=== PATIENT | male | born 1955 | race Caucasian/White ===

== ENCOUNTER 2016-09-25 10:29 | Inpatient (IN) | payer BC ==
[2016-09-25 11:28] VITALS: BMI 25.7
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
[2016-09-25] MEDS ORDERED: IBUPROFEN 400 MG TABLET (FP) PO PRN (14:58)
[2016-09-25] MEDS ORDERED: chlordiazePOXIDE HCL 25 MG CAPSULE PO PRN (14:58)
[2016-09-25] MEDS ORDERED: guaiFENesin/D-METHORPHAN HB 10 ML UNIT-DOSE CUPS PO PRN (14:58)
[2016-09-25] MEDS ORDERED: MAG HYDROX/AL HYDROX/SIMETH 30 ML UNIT-DOSE CUP PO PRN (14:58)
[2016-09-25] MEDS ORDERED: MAGNESIUM HYDROX 2400MG/30ML ORAL SUSPENSION 30 ML CUP PO PRN (14:58)
[2016-09-25] MEDS ORDERED: LOPERAMIDE HCL 2 MG CAPSULE PO PRN (14:58)
[2016-09-25] MEDS ORDERED: hydrOXYzine PAMOATE 25 MG CAPSULE (FP) PO PRN (14:58)
[2016-09-25] MEDS ORDERED: MENTHOL/PHENOL 1 EACH UD MM PRN (14:58)
[2016-09-25] MEDS ORDERED: MAGNESIUM CITRATE 300 ML BOTTLE PO PRN (14:58)
[2016-09-25] MEDS ORDERED: ACETAMINOPHEN 325 MG TABLET (FP) PO PRN (14:58)
[2016-09-25] MEDS ORDERED: P-EPHED 60MG/TRIPROLIDI 2.5MG TABLET PO PRN (14:58)
[2016-09-25] MEDS ORDERED: chlordiazePOXIDE HCL 25 MG CAPSULE PO ONE (16:45)
[2016-09-25] MEDS: chlordiazePOXIDE HCL 25 MG CAPSULE PO SCH ×2 (18:48→22:30)
[2016-09-25] MEDS: levETIRAcetam 250 MG TABLET (FP) PO SCH (22:30)
[2016-09-25] MEDS: THIAMINE HCL 100 MG TABLET (FP) PO SCH (22:30)
[2016-09-25] MEDS: diphenhydrAMINE HCL 50 MG CAPSULE PO PRN (22:31)
[2016-09-25 22:43] LABS: URINE APPEARANCE CLEAR; URINE BILIRUBIN NEGATIVE (NEGATIVE); URINE BLOOD NEGATIVE (NEGATIVE); URINE COLOR YELLOW; URINE GLUCOSE (UA) NEGATIVE (NEGATIVE); URINE KETONE TRACE (NEGATIVE); URINE LEUK ESTERASE NEGATIVE (NEGATIVE); URINE NITRITE NEGATIVE (NEGATIVE); URINE PROTEIN NEGATIVE (NEGATIVE); URINE UROBILINOGEN 2.0 E.U/dl E.U./dl (0.2-1.0)
[2016-09-25 22:53] LABS: MCH 34.3 pg (25.7-33.7); MCHC 34.2 g/dl (32.0-35.9); MEAN CELL VOLUME 100.2 fl (80-96); MEAN PLT VOLUME 7.8 fl (7.5-11.1); PLATELET COUNT 202 K/MM3 (134-434); RDW 13.4 % (11.9-15.9)
[2016-09-25 22:55] LABS: ALBUMIN 4.2 g/dl (3.4-5.0); ANION GAP 8 (8-16); CALCIUM 8.4 mg/dL (8.5-10.1); CO2 28 mmol/L (21-32); GLUCOSE,RANDOM 88 mg/dL (74-106)
[2016-09-25 22:59] LABS: ALK PHOS 84 U/L (45-117); BILIRUBIN,TOTAL 0.9 mg/dL (0.2-1.0); COCKROFT - GAULT 113.39; CREATININE 0.9 mg/dL (0.7-1.3); SGOT/AST 40 U/L (15-37); SGPT/ALT 26 U/L (12-78); TOT PROT 7.5 g/dl (6.4-8.2)
[2016-09-26] MEDS: chlordiazePOXIDE HCL 25 MG CAPSULE PO SCH ×4 (05:43→22:39)
--- NOTE | 2016-09-26 10:09 | EKG ---
Test Reason : Blood Pressure : / mmHG Vent. Rate : 060 BPM Atrial Rate : 060 BPM P-R Int : 166 ms QRS Dur : 104 ms QT Int : 432 ms P-R-T Axes : 045 061 055 degrees QTc Int : 432 ms NORMAL SINUS RHYTHM MODERATE VOLTAGE CRITERIA FOR LVH, MAY BE NORMAL VARIANT NO PREVIOUS ECGS AVAILABLE Confirmed by CLAUDIA BRANDT MD ([id number]) on 09/26/2016 10:09:31 AM Referred By: Confirmed By:CLAUDIA BRANDT MD
[2016-09-26] MEDS: PRENATAL VITAMINS W/ FOLIC ACID TABLET (FP) PO SCH (10:28)
[2016-09-26] MEDS: levETIRAcetam 250 MG TABLET (FP) PO SCH ×2 (10:28→22:39)
--- NOTE | 2016-09-26 10:52 | CONSULT ---
[facility] Psychiatric Consult - Data Date of interview: 09/26/16 Admission source: [facility] Identifying data: This is 61 years old H male father of 9 domiciled,resides alone,supported by SSD admitted for Alcohol dependence. Substance Abuse History: Reports drinking since 34 years old,progressed to heavy drinking about 2-3 years ago. Cocaine on and off started about 4 years ago. Medical History: Seizure disorder. Psychiatric History: Reports feeling depressed,sad ,anxious about 1 year ago.never addressed these issues before.Denies suicidal attempts,no history of psychiatric admissions ar any psychiatric treatment in the past. Physical/Sexual Abuse/Trauma History: denies Mental Status Exam - Mental Status Exam Alert and Oriented to: Time, Place, Person Cognitive Function: Grossly Intact Patient Appearance: Unkempt Mood: Depressed Affect: Labile Patient Behavior: Cooperative Speech Pattern: Clear Voice Loudness: Normal Thought Process: Goal Oriented Thought Disorder: Not Present Hallucinations: Denies Suicidal Ideation: Denies Homicidal Ideation: Denies Insight/Judgement: Fair Sleep: Fair Appetite: Good, Weight loss Muscle strength/Tone: Normal Gait/Station: Normal Psychiatric Findings - Problem List ([place] 1, 2,3) (1) Alcohol dependence with uncomplicated withdrawal Current Visit: Yes Status: Chronic (2) Cocaine dependence, uncomplicated Current Visit: Yes Status: Chronic (3) History of anemia Current Visit: Yes Status: Suspected (4) Seizure disorder Current Visit: Yes Status: Chronic Comment: ON [facility] (5) Substance induced mood disorder Current Visit: Yes Status: Chronic - Initial Treatment Plan Initial Treatment Plan: Start Celexa 10 mg po daily. Will monitor progress.
[2016-09-26] MEDS: CITALOPRAM HYDROBROMIDE 10 MG TABLET (FP) PO SCH (12:11)
[2016-09-26 13:42] LABS: HIV 1 & 2 AB NEGATIVE; HIV 1 AGp24 NEGATIVE
--- NOTE | 2016-09-26 14:05 | PN ---
S CIWA - CIWA Score Nausea/Vomitin Muscle Tremors: 2 Anxiety: 2 Agitation: 2 Paroxysmal Sweats: 2 Orientation: 0-Oriented Tacttile Disturbances: 1-Very Mild Itch/Numbness Auditory Disturbances: 0-None Visual Disturbances: 1-Very Mild Sensitivity Headache: 2-Mild CIWA-Ar Total Score: 14 S Progress Note (SOAP) Subjective: sleep interruption, tremors, sweats and left knee pain Objective: Vital Signs - 8 hr 09/26/16 09/26/16 06:48 09:50 Temperature 96.1 F L 98.4 F Pulse Rate 68 63 Respiratory 18 18 Rate Blood Pressure 125/80 133/84 Laboratory Last Values WBC 5.0 K/mm3 (4.0-10.0) 09/25/16 13:00 RBC 3.80 M/mm3 (4.00-5.60) L 09/25/16 13:00 Hgb 13.0 GM/dL (11.7-16.9) 09/25/16 13:00 Hct 38.0 % (35.4-49) 09/25/16 13:00 MCV 100.2 fl (80-96) H 09/25/16 13:00 MCHC 34.2 g/dl (32.0-35.9) 09/25/16 13:00 RDW 13.4 % (11.9-15.9) D 09/25/16 13:00 Plt Count 202 K/MM3 (134-434) D 09/25/16 13:00 MPV 7.8 fl (7.5-11.1) 09/25/16 13:00 Sodium 140 mmol/L (136-145) 09/25/16 13:00 Potassium 4.3 mmol/L (3.5-5.1) 09/25/16 13:00 Chloride 104 mmol/L (98-107) 09/25/16 13:00 Carbon Dioxide 28 mmol/L (21-32) 09/25/16 13:00 Anion Gap 8 (8-16) 09/25/16 13:00 BUN 6 mg/dL (7-18) L D 09/25/16 13:00 Creatinine 0.9 mg/dL (0.7-1.3) 09/25/16 13:00 Creat Clearance w eGFR > 60 (>60) 09/25/16 13:00 Random Glucose 88 mg/dL (74-106) 09/25/16 13:00 Calcium 8.4 mg/dL (8.5-10.1) L 09/25/16 13:00 Total Bilirubin 0.9 mg/dL (0.2-1.0) 09/25/16 13:00 AST 40 U/L (15-37) H D 09/25/16 13:00 ALT 26 U/L (12-78) D 09/25/16 13:00 Alkaline Phosphatase 84 U/L (45-117) 09/25/16 13:00 Total Protein 7.5 g/dl (6.4-8.2) 09/25/16 13:00 Albumin 4.2 g/dl (3.4-5.0) 09/25/16 13:00 Urine Color Yellow 09/25/16 21:30 Urine Appearance Clear 09/25/16 21:30 Urine pH 6.0 (5.0-8.0) 09/25/16 21:30 Ur Specific [place] 1.021 (1.001-1.035) 09/25/16 21:30 Urine Protein Negative (NEGATIVE) 09/25/16 21:30 Urine Glucose (UA) Negative (NEGATIVE) 09/25/16 21:30 Urine Ketones Trace (NEGATIVE) H 09/25/16 21:30 Urine Blood Negative (NEGATIVE) 09/25/16 21:30 Urine Nitrite Negative (NEGATIVE) 09/25/16 21:30 Urine Bilirubin Negative (NEGATIVE) 09/25/16 21:30 Urine Urobilinogen 2.0 e.u/dl E.U./dl (0.2-1.0) 09/25/16 21:30 Ur Leukocyte Esterase Negative (NEGATIVE) 09/25/16 21:30 RPR Titer Nonreactive (NONREACTIVE) 09/25/16 13:00 HIV 1&2 Antibody Screen Negative 09/26/16 08:20 HIV P24 Antigen Negative 09/26/16 08:20 labs noted Assessment: 09/26/16 14:04 withdrawal sx Plan: continue detox
[2016-09-26] MEDS: THIAMINE HCL 100 MG TABLET (FP) PO SCH (22:39)
[2016-09-26] MEDS: diphenhydrAMINE HCL 50 MG CAPSULE PO PRN (22:40)
[2016-09-27] MEDS: chlordiazePOXIDE HCL 25 MG CAPSULE PO SCH ×2 (05:32→10:28)
[2016-09-27] MEDS: PRENATAL VITAMINS W/ FOLIC ACID TABLET (FP) PO SCH (10:27)
[2016-09-27] MEDS: levETIRAcetam 250 MG TABLET (FP) PO SCH ×2 (10:28→22:44)
[2016-09-27] MEDS: CITALOPRAM HYDROBROMIDE 10 MG TABLET (FP) PO SCH (10:28)
--- NOTE | 2016-09-27 16:18 | PN ---
S CIWA - CIWA Score Nausea/Vomitin Muscle Tremors: 4-Moderate,w/Arms Extend Anxiety: 4-Mod. Anxious/Guarded Agitation: 4-Moderately Restless Paroxysmal Sweats: No Perspiration Orientation: 0-Oriented Tacttile Disturbances: 1-Very Mild Itch/Numbness Auditory Disturbances: 0-None Visual Disturbances: 0-None Headache: 2-Mild CIWA-Ar Total Score: 18 BHS Progress Note (SOAP) Subjective: Sweating, anxious, pain in legs, interrupted sleep Objective: 09/27/16 16:17 Last Vital Signs Temp Pulse Resp BP Pulse Ox 97.4 F L 81 18 121/79 09/27/16 13:37 09/27/16 13:37 09/27/16 13:37 09/27/16 13:37 Laboratory Tests 09/25/16 09/25/16 09/25/16 13:00 13:00 13:00 WBC 5.0 RBC 3.80 L Hgb 13.0 Hct 38.0 MCV 100.2 H MCHC 34.2 RDW 13.4 D Plt Count 202 D MPV 7.8 Sodium 140 Potassium 4.3 Chloride 104 Carbon Dioxide 28 Anion Gap 8 BUN 6 L D Creatinine 0.9 Creat Clearance w eGFR > 60 Random Glucose 88 Calcium 8.4 L Total Bilirubin 0.9 AST 40 H D ALT 26 D Alkaline Phosphatase 84 Total Protein 7.5 Albumin 4.2 Urine Color Urine Appearance Urine pH Ur Specific [place] Urine Protein Urine Glucose (UA) Urine Ketones Urine Blood Urine Nitrite Urine Bilirubin Urine Urobilinogen Ur Leukocyte Esterase RPR Titer Nonreactive HIV 1&2 Antibody Screen HIV P24 Antigen 09/25/16 09/26/16 21:30 08:20 WBC RBC Hgb Hct MCV MCHC RDW Plt Count MPV Sodium Potassium Chloride Carbon Dioxide Anion Gap BUN Creatinine Creat Clearance w eGFR Random Glucose Calcium Total Bilirubin AST ALT Alkaline Phosphatase Total Protein Albumin Urine Color Yellow Urine Appearance Clear Urine pH 6.0 Ur Specific [place] 1.021 Urine Protein Negative Urine Glucose (UA) Negative Urine Ketones Trace H Urine Blood Negative Urine Nitrite Negative Urine Bilirubin Negative Urine Urobilinogen 2.0 e.u/dl Ur Leukocyte Esterase Negative RPR Titer HIV 1&2 Antibody Screen Negative HIV P24 Antigen Negative Labs noted Assessment: 09/27/16 16:17 Withdrawal symptoms Plan: Continue detox
[2016-09-27] MEDS: chlordiazePOXIDE 5 MG CAPSULE PO SCH ×2 (17:33→22:43)
[2016-09-27] MEDS: THIAMINE HCL 100 MG TABLET (FP) PO SCH (22:43)
[2016-09-27] MEDS: diphenhydrAMINE HCL 50 MG CAPSULE PO PRN (22:44)
[2016-09-28] MEDS: chlordiazePOXIDE 5 MG CAPSULE PO SCH ×2 (05:54→10:33)
[2016-09-28] MEDS: PRENATAL VITAMINS W/ FOLIC ACID TABLET (FP) PO SCH (10:33)
[2016-09-28] MEDS: levETIRAcetam 250 MG TABLET (FP) PO SCH ×2 (10:33→22:30)
[2016-09-28] MEDS: CITALOPRAM HYDROBROMIDE 10 MG TABLET (FP) PO SCH (10:33)
--- NOTE | 2016-09-28 14:27 | PN ---
BHS Progress Note (SOAP) Subjective: Sweating,interrupted sleep,restless. Objective: 09/28/16 14:25 Vital Signs - 8 hr 09/28/16 09/28/16 09:53 14:12 Temperature 98.6 F 96.8 F L Pulse Rate 92 H 84 Respiratory 20 18 Rate Blood Pressure 114/77 130/89 Laboratory Last Values WBC 5.0 K/mm3 (4.0-10.0) 09/25/16 13:00 RBC 3.80 M/mm3 (4.00-5.60) L 09/25/16 13:00 Hgb 13.0 GM/dL (11.7-16.9) 09/25/16 13:00 Hct 38.0 % (35.4-49) 09/25/16 13:00 MCV 100.2 fl (80-96) H 09/25/16 13:00 MCHC 34.2 g/dl (32.0-35.9) 09/25/16 13:00 RDW 13.4 % (11.9-15.9) D 09/25/16 13:00 Plt Count 202 K/MM3 (134-434) D 09/25/16 13:00 MPV 7.8 fl (7.5-11.1) 09/25/16 13:00 Sodium 140 mmol/L (136-145) 09/25/16 13:00 Potassium 4.3 mmol/L (3.5-5.1) 09/25/16 13:00 Chloride 104 mmol/L (98-107) 09/25/16 13:00 Carbon Dioxide 28 mmol/L (21-32) 09/25/16 13:00 Anion Gap 8 (8-16) 09/25/16 13:00 BUN 6 mg/dL (7-18) L D 09/25/16 13:00 Creatinine 0.9 mg/dL (0.7-1.3) 09/25/16 13:00 Creat Clearance w eGFR > 60 (>60) 09/25/16 13:00 Random Glucose 88 mg/dL (74-106) 09/25/16 13:00 Calcium 8.4 mg/dL (8.5-10.1) L 09/25/16 13:00 Total Bilirubin 0.9 mg/dL (0.2-1.0) 09/25/16 13:00 AST 40 U/L (15-37) H D 09/25/16 13:00 ALT 26 U/L (12-78) D 09/25/16 13:00 Alkaline Phosphatase 84 U/L (45-117) 09/25/16 13:00 Total Protein 7.5 g/dl (6.4-8.2) 09/25/16 13:00 Albumin 4.2 g/dl (3.4-5.0) 09/25/16 13:00 Urine Color Yellow 09/25/16 21:30 Urine Appearance Clear 09/25/16 21:30 Urine pH 6.0 (5.0-8.0) 09/25/16 21:30 Ur Specific [place] 1.021 (1.001-1.035) 09/25/16 21:30 Urine Protein Negative (NEGATIVE) 09/25/16 21:30 Urine Glucose (UA) Negative (NEGATIVE) 09/25/16 21:30 Urine Ketones Trace (NEGATIVE) H 09/25/16 21:30 Urine Blood Negative (NEGATIVE) 09/25/16 21:30 Urine Nitrite Negative (NEGATIVE) 09/25/16 21:30 Urine Bilirubin Negative (NEGATIVE) 09/25/16 21:30 Urine Urobilinogen 2.0 e.u/dl E.U./dl (0.2-1.0) 09/25/16 21:30 Ur Leukocyte Esterase Negative (NEGATIVE) 09/25/16 21:30 Levetiracetam 17.2 MCG/ML (10.0-40.0) 09/25/16 13:00 RPR Titer Nonreactive (NONREACTIVE) 09/25/16 13:00 HIV 1&2 Antibody Screen Negative 09/26/16 08:20 HIV P24 Antigen Negative 09/26/16 08:20 labs noted Assessment: 09/28/16 14:26 Withdrawal sx. Plan: Continue detox
[2016-09-28] MEDS: chlordiazePOXIDE HCL 10 MG CAPSULE PO SCH ×2 (17:19→22:29)
[2016-09-28] MEDS: THIAMINE HCL 100 MG TABLET (FP) PO SCH (22:29)
[2016-09-29] MEDS: chlordiazePOXIDE HCL 10 MG CAPSULE PO SCH (05:58)
[2016-09-29 06:33] VITALS: BP 100/72; PULSE 84; TEMP 98.8
[2016-09-29] MEDS: levETIRAcetam 250 MG TABLET (FP) PO SCH (09:20)
[2016-09-29] MEDS: PRENATAL VITAMINS W/ FOLIC ACID TABLET (FP) PO SCH (09:21)
[2016-09-29] MEDS: CITALOPRAM HYDROBROMIDE 10 MG TABLET (FP) PO SCH (09:21)
--- NOTE | 2016-09-29 10:38 | DS ---
[facility] Detox Discharge Summary Admission Date: 09/25/16 Discharge Date: 09/29/16 - History Present History: Alcohol Dependence, Cocaine Dependence Additional Comments: DETOX COMPLETED.ALERT O X 3. NAD. Pertinent Past History: ANEMIA SEIZURE DISORDER HX DEPRESSION - Physical Exam Results Vital Signs: Vital Signs Temperature 98.8 F 09/29/16 06:33 Pulse Rate 84 09/29/16 06:33 Respiratory Rate 18 09/29/16 06:33 Blood Pressure 100/72 09/29/16 06:33 O2 Sat by Pulse Oximetry (%) - Treatment Hospital Course: Detox Protocol Followed, Detoxed Safely, Responded well, Discharged Condition Good - Medication Discharge Medications: Ambulatory Orders Levetiracetam [Keppra -] 750 mg PO BID 09/25/16 Citalopram Hydrobromide [Celexa -] 10 mg PO DAILY #30 tablet 09/26/16 - Diagnosis (1) Alcohol dependence with uncomplicated withdrawal Status: Acute (2) Cocaine dependence, uncomplicated Status: Acute (3) History of depression Status: Chronic (4) History of anemia Status: Suspected (5) Seizure disorder Status: Chronic (6) Substance induced mood disorder Status: Chronic - AMA Did Patient Leave Against Medical Advice: No
== END 2016-09-29 09:34 | disposition home or self-care (01) | DRG 774 ==
LOC: YASAS 10:29 → Y3N 16:06
PROVIDERS: ADMIT Internal Medicine; ATTEND Internal Medicine
PROC: HZ2ZZZZ Detoxification Services for Substance Abuse Treatment (ICD-10-PCS; principal; 2016-09-29)
DX: F10.230 Alcohol dependence with withdrawal, uncomplicated (principal); F14.20 Cocaine dependence, uncomplicated; F19.24 Other psychoactive substance dependence with psychoactive substance-induced mood disorder; F32.9 Major depressive disorder, single episode, unspecified; G40.909 Epilepsy, unspecified, not intractable, without status epilepticus; Z86.2 Personal history of diseases of the blood and blood-forming organs and certain disorders involving the immune mechanism
CPT/HCPCS: 36415; 71020-TC; 80053; 81003; 85027; 86593; 87389; 93005; 93010

== ENCOUNTER 2021-06-24 15:06 | Inpatient (IN) | payer OTHER ==
[2021-06-24] MEDS ORDERED: ACETAMINOPHEN 325 MG TABLET (FP) PO PRN ×2 (15:49)
[2021-06-24] MEDS ORDERED: MENTHOL/PHENOL 1 EACH UD MM PRN (15:49)
[2021-06-24] MEDS ORDERED: MAGNESIUM CITRATE 300 ML BOTTLE PO PRN (15:49)
[2021-06-24] MEDS ORDERED: MAGNESIUM HYDROX 2400MG/30ML ORAL SUSPENSION 30 ML CUP PO PRN (15:49)
[2021-06-24] MEDS ORDERED: IBUPROFEN 400 MG TABLET (FP) PO PRN (15:49)
[2021-06-24] MEDS ORDERED: MAG HYDROX/AL HYDROX/SIMETH 30 ML UNIT-DOSE CUP PO PRN (15:49)
[2021-06-24] MEDS ORDERED: BISMUTH SUBSALICYLATE 524 MG/30 ML PO PRN (15:49)
[2021-06-24] MEDS ORDERED: chlordiazePOXIDE HCL 25 MG CAPSULE PO PRN (15:49)
[2021-06-24] MEDS ORDERED: ONDANSETRON *ODT* 4 MG TABLET SL PRN (15:49)
[2021-06-24 19:19] VITALS: BMI 48.5
[2021-06-24] MEDS ORDERED: MELATONIN 5 MG TABLETS PO SCH (22:00)
[2021-06-24] MEDS: PRENATAL VITAMINS W/ FOLIC ACID TABLET (FP) PO SCH (22:32)
[2021-06-24] MEDS: BACITRACIN 0.9 GM PACKET TP SCH (22:33)
[2021-06-24] MEDS: hydrOXYzine PAMOATE 25 MG CAPSULE (FP) PO SCH ×2 (22:33→22:52)
[2021-06-24] MEDS: levETIRAcetam 250 MG TABLET PO SCH (22:33)
[2021-06-24] MEDS: chlordiazePOXIDE HCL 25 MG CAPSULE PO SCH (22:34)
[2021-06-24] MEDS: THIAMINE HCL 100 MG TABLET (FP) PO SCH (22:34)
[2021-06-25] MEDS: chlordiazePOXIDE HCL 25 MG CAPSULE PO SCH ×4 (05:44→22:13)
[2021-06-25] MEDS: hydrOXYzine PAMOATE 25 MG CAPSULE (FP) PO SCH ×5 (05:44→22:11)
[2021-06-25 10:03] LABS: HEMATOCRIT 31.3 % (35.4-49); HEMOGLOBIN 10.7 GM/dL (11.7-16.9); MCH 33.7 pg (25.7-33.7); MEAN CELL VOLUME 98.9 fl (80-96); MEAN PLT VOLUME 7.3 fl (7.5-11.1); PLATELET COUNT 114 10^3/uL (134-434); RBC 3.17 M/mm3 (4.00-5.60); WHITE BLOOD COUNT 4.6 K/mm3 (4.0-10.0)
[2021-06-25 10:18] LABS: ALBUMIN 3.4 g/dl (3.4-5.0); CALCIUM 9.2 mg/dL (8.5-10.1)
[2021-06-25 10:19] LABS: BLOOD UREA NITROGEN 8.8 mg/dL (7-18)
[2021-06-25 10:21] LABS: CREATININE 0.8 mg/dL (0.55-1.3)
[2021-06-25 10:24] LABS: BILIRUBIN,TOTAL 1.1 mg/dL (0.2-1); TOT PROT 6.8 g/dl (6.4-8.2)
[2021-06-25] MEDS: BACITRACIN 0.9 GM PACKET TP SCH ×2 (10:26→22:11)
[2021-06-25] MEDS: PRENATAL VITAMINS W/ FOLIC ACID TABLET (FP) PO SCH (10:27)
[2021-06-25] MEDS: levETIRAcetam 250 MG TABLET PO SCH ×2 (10:27→22:11)
[2021-06-25] MEDS: CITALOPRAM HYDROBROMIDE 10 MG TABLET PO SCH (12:22)
[2021-06-25] MEDS ORDERED: POTASSIUM CHLORIDE ORAL LIQUID 20 MEQ/15 ML PO ONE (14:00)
[2021-06-25] MEDS: THIAMINE HCL 100 MG TABLET (FP) PO SCH (22:11)
[2021-06-25] MEDS: POTASSIUM CHLORIDE ORAL LIQUID 20 MEQ/15 ML PO SCH (22:11)
[2021-06-25] MEDS: SUVOREXANT 5 MG TABLET PO PRN (22:12)
[2021-06-26] MEDS: chlordiazePOXIDE HCL 25 MG CAPSULE PO SCH ×4 (05:15→23:47)
[2021-06-26] MEDS: hydrOXYzine PAMOATE 25 MG CAPSULE (FP) PO SCH ×5 (05:15→22:17)
[2021-06-26] MEDS: PRENATAL VITAMINS W/ FOLIC ACID TABLET (FP) PO SCH (10:08)
[2021-06-26] MEDS: METHOCARBAMOL 500 MG TABLET PO PRN (10:08)
[2021-06-26] MEDS: POTASSIUM CHLORIDE ORAL LIQUID 20 MEQ/15 ML PO SCH ×2 (10:08→22:16)
[2021-06-26] MEDS: levETIRAcetam 250 MG TABLET PO SCH ×2 (10:08→22:17)
[2021-06-26] MEDS: BACITRACIN 0.9 GM PACKET TP SCH ×2 (10:08→22:17)
[2021-06-26] MEDS: CITALOPRAM HYDROBROMIDE 10 MG TABLET PO SCH (12:31)
[2021-06-26] MEDS: THIAMINE HCL 100 MG TABLET (FP) PO SCH (22:17)
[2021-06-27] MEDS ORDERED: chlordiazePOXIDE HCL 10 MG CAPSULE PO PRN
[2021-06-27] MEDS: chlordiazePOXIDE HCL 10 MG CAPSULE PO SCH ×4 (05:49→22:23)
[2021-06-27] MEDS: hydrOXYzine PAMOATE 25 MG CAPSULE (FP) PO SCH ×5 (05:50→22:23)
[2021-06-27] MEDS: PRENATAL VITAMINS W/ FOLIC ACID TABLET (FP) PO SCH (10:44)
[2021-06-27] MEDS: METHOCARBAMOL 500 MG TABLET PO PRN (10:44)
[2021-06-27] MEDS: BACITRACIN 0.9 GM PACKET TP SCH ×2 (10:44→22:23)
[2021-06-27] MEDS: levETIRAcetam 250 MG TABLET PO SCH ×2 (10:44→22:23)
[2021-06-27] MEDS: CITALOPRAM HYDROBROMIDE 10 MG TABLET PO SCH (10:44)
[2021-06-27] MEDS: THIAMINE HCL 100 MG TABLET (FP) PO SCH (22:24)
[2021-06-27] MEDS: SUVOREXANT 5 MG TABLET PO PRN (22:25)
[2021-06-28] MEDS: chlordiazePOXIDE HCL 10 MG CAPSULE PO SCH ×2 (06:07→18:22)
[2021-06-28] MEDS: hydrOXYzine PAMOATE 25 MG CAPSULE (FP) PO SCH ×5 (06:08→22:37)
[2021-06-28] MEDS: CITALOPRAM HYDROBROMIDE 10 MG TABLET PO SCH (10:18)
[2021-06-28] MEDS: BACITRACIN 0.9 GM PACKET TP SCH ×2 (10:18→22:37)
[2021-06-28] MEDS: levETIRAcetam 250 MG TABLET PO SCH ×2 (10:18→22:38)
[2021-06-28] MEDS: PRENATAL VITAMINS W/ FOLIC ACID TABLET (FP) PO SCH (10:19)
[2021-06-28] MEDS ORDERED: SUVOREXANT 5 MG TABLET PO PRN (22:11)
[2021-06-28] MEDS: THIAMINE HCL 100 MG TABLET (FP) PO SCH (22:37)
[2021-06-29] MEDS ORDERED: chlordiazePOXIDE HCL 10 MG CAPSULE PO ONE (05:00)
[2021-06-29] MEDS: hydrOXYzine PAMOATE 25 MG CAPSULE (FP) PO SCH ×2 (05:17→09:57)
[2021-06-29 07:13] VITALS: TEMP 97.1
[2021-06-29 09:29] VITALS: BP 116/68; PULSE 95
[2021-06-29] MEDS: PRENATAL VITAMINS W/ FOLIC ACID TABLET (FP) PO SCH (09:57)
[2021-06-29] MEDS: CITALOPRAM HYDROBROMIDE 10 MG TABLET PO SCH (09:57)
[2021-06-29] MEDS: METHOCARBAMOL 500 MG TABLET PO PRN (09:57)
[2021-06-29] MEDS: levETIRAcetam 250 MG TABLET PO SCH (09:57)
[2021-06-29] MEDS: BACITRACIN 0.9 GM PACKET TP SCH (09:58)
== END 2021-06-29 11:16 | disposition other institution (70) | DRG 774 ==
LOC: YASAS 15:06 → Y6N 20:58
PROVIDERS: ADMIT Allergy & Immunology; ATTEND Allergy & Immunology
PROC: HZ2ZZZZ Detoxification Services for Substance Abuse Treatment (ICD-10-PCS; principal; 2021-06-24)
DX: F10.230 Alcohol dependence with withdrawal, uncomplicated (principal); F14.20 Cocaine dependence, uncomplicated; F10.282 Alcohol dependence with alcohol-induced sleep disorder; F10.24 Alcohol dependence with alcohol-induced mood disorder; F32.A Depression, unspecified; G40.909 Epilepsy, unspecified, not intractable, without status epilepticus; R00.0 Tachycardia, unspecified; Z56.0 Unemployment, unspecified; Z59.00 Homelessness unspecified
CPT/HCPCS: 36415; 80053; 85027; 86780; 93005; 93010; C9803; U0003; U0005

== ENCOUNTER 2021-06-29 22:58 | Emergency (ER) | payer OTHER ==
[2021-06-29 23:11] VITALS: BP 113/71; PULSE 90; TEMP 97.2; BMI 23.8
[2021-06-29] MEDS ORDERED: IBUPROFEN 400 MG TABLET (FP) PO ONE (23:45)
[2021-06-30] MEDS ORDERED: IBUPROFEN 400 MG TABLET (FP) PO ONE (00:22)
[2021-06-30 00:59] LABS: BASO % 0.6 % (0-2.0); EOS % 11.2 % (0-4.5); HEMATOCRIT 30.1 % (35.4-49); HEMOGLOBIN 10.2 GM/dL (11.7-16.9); LYMPH % 34.4 % (8-40); MCH 33.5 pg (25.7-33.7); MCHC 33.9 g/dl (32.0-35.9); MEAN PLT VOLUME 7.7 fl (7.5-11.1); MONO % 12.5 % (3.8-10.2); NEUT % 41.3 % (42.8-82.8); PLATELET COUNT 176 10^3/uL (134-434); RBC 3.04 M/mm3 (4.00-5.60); RDW 13.9 % (11.9-15.9); WHITE BLOOD COUNT 3.7 K/mm3 (4.0-10.0)
[2021-06-30 01:20] LABS: CHLORIDE 97 mmol/L (98-107); SODIUM 130 mmol/L (136-145)
[2021-06-30 01:22] LABS: ALBUMIN 3.4 g/dl (3.4-5.0); ANION GAP 3 MMOL/L (8-16); BLOOD UREA NITROGEN 10.1 mg/dL (7-18); CALCIUM 8.7 mg/dL (8.5-10.1); CO2 30 mmol/L (21-32); GLUCOSE,RANDOM 101 mg/dL (74-106)
[2021-06-30 01:25] LABS: CREATININE 0.8 mg/dL (0.55-1.3); SGOT/AST 71 U/L (15-37)
[2021-06-30 01:26] LABS: SGPT/ALT 30 U/L (13-61)
[2021-06-30] MEDS ORDERED: SODIUM CHLORIDE 0.9% 500 ML INFUS.BAG IV ONE (01:26)
[2021-06-30 01:27] LABS: BILIRUBIN,TOTAL 0.3 mg/dL (0.2-1); TOT PROT 7.2 g/dl (6.4-8.2)
[2021-06-30 01:28] LABS: ALK PHOS 97 U/L (45-117)
[2021-06-30 02:09] LABS: CALCIUM 8.8 mg/dL (8.5-10.1)
[2021-06-30 02:10] LABS: BLOOD UREA NITROGEN 9.3 mg/dL (7-18)
[2021-06-30 02:13] LABS: CREATININE 0.7 mg/dL (0.55-1.3)
== END 2021-06-30 06:48 | disposition home or self-care (01) ==
LOC: JER 22:58
DX: R07.9 Chest pain, unspecified (principal)
CPT/HCPCS: 36415; 71045-TC-FY; 80048; 80053; 82550; 82553; 84484; 85025; 93005; 93010; 99285-25

== ENCOUNTER 2022-08-23 23:59 | Inpatient (IN) | payer OTHER ==
[2022-08-24] MEDS ORDERED: BENZONATATE 200 MG CAPSULE PO PRN (00:45)
[2022-08-24] MEDS ORDERED: BISMUTH SUBSALICYLATE 524 MG/30 ML PO PRN (00:45)
[2022-08-24] MEDS ORDERED: ACETAMINOPHEN 325 MG TABLET (FP) PO PRN (00:45)
[2022-08-24] MEDS ORDERED: MAG HYDROX/AL HYDROX/SIMETH 30 ML UNIT-DOSE CUP PO PRN (00:45)
[2022-08-24] MEDS ORDERED: DICYCLOMINE HCL 10 MG CAPSULE PO PRN (00:45)
[2022-08-24] MEDS ORDERED: LOPERAMIDE HCL 2 MG CAPSULE PO PRN (00:45)
[2022-08-24] MEDS ORDERED: IBUPROFEN 600 MG TABLET (FP) PO PRN (00:45)
[2022-08-24] MEDS ORDERED: NALOXONE HCL 0.4 MG/ML VIAL IM PRN (00:45)
[2022-08-24] MEDS ORDERED: IBUPROFEN 400 MG TABLET (FP) PO PRN (00:45)
[2022-08-24] MEDS ORDERED: ONDANSETRON *ODT* 4 MG TABLET SL PRN (00:45)
[2022-08-24] MEDS ORDERED: NALOXONE HCL (KLOXXADO) 8 MG SPRAY NS PRN (00:45)
[2022-08-24] MEDS ORDERED: BENZOCAINE/MENTHOL (CHLORASEPTIC ) LOZENGE MM PRN (00:45)
[2022-08-24] MEDS ORDERED: hydrOXYzine PAMOATE 25 MG CAPSULE (FP) PO PRN (00:45)
[2022-08-24] MEDS ORDERED: guaiFENesin 600 MG TABLET.ER (FP) PO PRN (00:45)
[2022-08-24] MEDS ORDERED: POLYETHYLENE GLYCOL (HEALTHYLAX) 3350 17 GM PACKET PO PRN (00:45)
[2022-08-24] MEDS ORDERED: MAGNESIUM HYDROX 2400MG/30ML ORAL SUSPENSION 30 ML CUP PO PRN (00:45)
[2022-08-24 01:15] VITALS: BMI 23.1
[2022-08-24] MEDS: PRENATAL VITAMINS W/ FOLIC ACID TABLET (FP) PO SCH (10:35)
[2022-08-24 19:35] LABS: PH,URINE 6.5 (5.0-8.0); URINE APPEARANCE CLEAR; URINE BILIRUBIN NEGATIVE (NEGATIVE); URINE COLOR YELLOW; URINE GLUCOSE (UA) NEGATIVE (NEGATIVE); URINE KETONE TRACE (NEGATIVE); URINE LEUK ESTERASE NEGATIVE (NEGATIVE); URINE NITRITE NEGATIVE (NEGATIVE); URINE PROTEIN NEGATIVE (NEGATIVE)
[2022-08-24] MEDS ORDERED: MELATONIN 5 MG TABLETS PO SCH (22:00)
[2022-08-24] MEDS ORDERED: THIAMINE HCL 100 MG TABLET (FP) PO SCH (22:00)
[2022-08-25 07:23] VITALS: RESP 18
[2022-08-25 09:31] VITALS: TEMP 97.7
[2022-08-25] MEDS: PRENATAL VITAMINS W/ FOLIC ACID TABLET (FP) PO SCH (12:20)
[2022-08-25 13:21] VITALS: BP 111/77; PULSE 89
== END 2022-08-25 13:38 | disposition other institution (70) | DRG 774 ==
LOC: Y6N 08-24 01:06 → UNDOADMIN 08-24 01:06
PROVIDERS: ADMIT Allergy & Immunology; ATTEND Allergy & Immunology
PROC: HZ2ZZZZ Detoxification Services for Substance Abuse Treatment (ICD-10-PCS; principal; 2022-08-24)
DX: F10.20 Alcohol dependence, uncomplicated (principal); F14.20 Cocaine dependence, uncomplicated; G40.909 Epilepsy, unspecified, not intractable, without status epilepticus
CPT/HCPCS: 81003; 87811; 93005; 93010; C9803-CS; U0003; U0005

== ENCOUNTER 2022-08-25 13:44 | Inpatient (IN) | payer OTHER ==
[2022-08-25] MEDS ORDERED: NALOXONE HCL 0.4 MG/ML VIAL IVPUSH PRN (16:00)
[2022-08-25] MEDS ORDERED: BENZONATATE 200 MG CAPSULE PO PRN (16:00)
[2022-08-25] MEDS ORDERED: MAG HYDROX/AL HYDROX/SIMETH 30 ML UNIT-DOSE CUP PO PRN (16:00)
[2022-08-25] MEDS ORDERED: METHOCARBAMOL 500 MG TABLET PO PRN (16:00)
[2022-08-25] MEDS ORDERED: IBUPROFEN 600 MG TABLET (FP) PO PRN (16:00)
[2022-08-25] MEDS ORDERED: NICOTINE 10 MG CARTRIDGE (INHALER) IH PRN (16:00)
[2022-08-25] MEDS ORDERED: LOPERAMIDE HCL 2 MG CAPSULE PO PRN (16:00)
[2022-08-25] MEDS ORDERED: guaiFENesin 600 MG TABLET.ER (FP) PO PRN (16:00)
[2022-08-25] MEDS ORDERED: BENZOCAINE/MENTHOL (CHLORASEPTIC ) LOZENGE MM PRN (16:00)
[2022-08-25] MEDS ORDERED: POLYETHYLENE GLYCOL (HEALTHYLAX) 3350 17 GM PACKET PO PRN (16:00)
[2022-08-25] MEDS ORDERED: NALOXONE HCL (KLOXXADO) 8 MG SPRAY NS PRN (16:00)
[2022-08-25] MEDS ORDERED: IBUPROFEN 400 MG TABLET (FP) PO PRN (16:00)
[2022-08-25] MEDS ORDERED: ACETAMINOPHEN 325 MG TABLET (FP) PO PRN (16:00)
[2022-08-25] MEDS ORDERED: MAGNESIUM HYDROX 2400MG/30ML ORAL SUSPENSION 30 ML CUP PO PRN (16:00)
[2022-08-25] MEDS: MELATONIN 5 MG TABLETS PO SCH (21:30)
[2022-08-25] MEDS: THIAMINE HCL 100 MG TABLET (FP) PO SCH (21:30)
[2022-08-25] MEDS: levETIRAcetam XR 750 MG TAB PO SCH (22:13)
[2022-08-26] MEDS: PRENATAL VITAMINS W/ FOLIC ACID TABLET (FP) PO SCH (09:52)
[2022-08-26] MEDS: levETIRAcetam XR 750 MG TAB PO SCH ×2 (09:53→21:17)
[2022-08-26 15:00] LABS: HEMATOCRIT 37.4 % (35.4-49); HEMOGLOBIN 12.8 GM/dL (11.7-16.9); MCHC 34.1 g/dl (32.0-35.9); MEAN CELL VOLUME 96.5 fl (80-96); MEAN PLT VOLUME 7.7 fl (7.5-11.1); PLATELET COUNT 273 10^3/uL (134-434); RBC 3.87 M/mm3 (4.00-5.60); RDW 15.9 % (11.9-15.9); WHITE BLOOD COUNT 5.1 K/mm3 (4.0-10.0)
[2022-08-26 15:10] LABS: ALBUMIN 3.6 g/dl (3.4-5.0); BLOOD UREA NITROGEN 7.8 mg/dL (7-18)
[2022-08-26 15:11] LABS: CREATININE 0.9 mg/dL (0.55-1.3)
[2022-08-26 15:12] LABS: BILIRUBIN,TOTAL 0.6 mg/dL (0.2-1); TOT PROT 7.7 g/dl (6.4-8.2)
[2022-08-26 15:24] LABS: SYPHILIS W/ RPR CONF NON-REACTIVE (NONREACTIVE)
[2022-08-26 15:53] LABS: HIV INTERPRETATION NEGATIVE (NEGATIVE)
[2022-08-26] MEDS: THIAMINE HCL 100 MG TABLET (FP) PO SCH (21:16)
[2022-08-26] MEDS: MELATONIN 5 MG TABLETS PO SCH (21:16)
[2022-08-27] MEDS: levETIRAcetam XR 750 MG TAB PO SCH ×2 (09:56→21:20)
[2022-08-27] MEDS: PRENATAL VITAMINS W/ FOLIC ACID TABLET (FP) PO SCH (09:56)
[2022-08-27] MEDS: MELATONIN 5 MG TABLETS PO SCH (21:19)
[2022-08-27] MEDS: THIAMINE HCL 100 MG TABLET (FP) PO SCH (21:19)
[2022-08-28] MEDS: levETIRAcetam XR 750 MG TAB PO SCH ×2 (09:51→21:23)
[2022-08-28] MEDS: PRENATAL VITAMINS W/ FOLIC ACID TABLET (FP) PO SCH (09:51)
[2022-08-28] MEDS: THIAMINE HCL 100 MG TABLET (FP) PO SCH (21:22)
[2022-08-28] MEDS: MELATONIN 5 MG TABLETS PO SCH (21:22)
[2022-08-29] MEDS: PRENATAL VITAMINS W/ FOLIC ACID TABLET (FP) PO SCH (09:56)
[2022-08-29] MEDS: levETIRAcetam XR 750 MG TAB PO SCH ×2 (09:56→21:28)
[2022-08-29 21:03] LABS: EPI CELLS >36 /uL (0-25.1); HYALINE CASTS 16 /uL (0-3.1); PH,URINE 6.5 (5.0-8.0); URINE APPEARANCE CLEAR; URINE BACTERIA 33 /uL (0-1359); URINE BILIRUBIN NEGATIVE (NEGATIVE); URINE COLOR YELLOW; URINE GLUCOSE (UA) NEGATIVE (NEGATIVE); URINE KETONE NEGATIVE (NEGATIVE); URINE LEUK ESTERASE 1+ (NEGATIVE); URINE NITRITE NEGATIVE (NEGATIVE); URINE PROTEIN 1+ (NEGATIVE); URINE RBC 13 /uL (0-23.9); URINE WBC 385 /uL (0-25.8)
[2022-08-29] MEDS: MELATONIN 5 MG TABLETS PO SCH (21:28)
[2022-08-29] MEDS: THIAMINE HCL 100 MG TABLET (FP) PO SCH (21:28)
[2022-08-30] MEDS: PRENATAL VITAMINS W/ FOLIC ACID TABLET (FP) PO SCH (10:15)
[2022-08-30] MEDS: levETIRAcetam XR 750 MG TAB PO SCH ×2 (10:16→21:57)
[2022-08-30] MEDS: MELATONIN 5 MG TABLETS PO SCH (21:57)
[2022-08-30] MEDS: THIAMINE HCL 100 MG TABLET (FP) PO SCH (21:57)
[2022-08-31] MEDS: levETIRAcetam XR 750 MG TAB PO SCH ×2 (10:04→21:21)
[2022-08-31] MEDS: PRENATAL VITAMINS W/ FOLIC ACID TABLET (FP) PO SCH (10:04)
[2022-08-31] MEDS ORDERED: PHENAZOPYRIDINE HCL 100 MG TABLET (FP) PO ONE (12:00)
[2022-08-31] MEDS: TAMSULOSIN HCL 0.4 MG CAP PO SCH (12:01)
[2022-08-31] MEDS: PHENAZOPYRIDINE HCL 100 MG TABLET (FP) PO SCH (16:32)
[2022-08-31] MEDS: THIAMINE HCL 100 MG TABLET (FP) PO SCH (21:20)
[2022-08-31] MEDS: MELATONIN 5 MG TABLETS PO SCH (21:20)
[2022-09-01] MEDS: TAMSULOSIN HCL 0.4 MG CAP PO SCH (07:04)
[2022-09-01] MEDS: PHENAZOPYRIDINE HCL 100 MG TABLET (FP) PO SCH ×3 (07:04→17:00)
[2022-09-01] MEDS: PRENATAL VITAMINS W/ FOLIC ACID TABLET (FP) PO SCH (10:00)
[2022-09-01] MEDS: levETIRAcetam XR 750 MG TAB PO SCH ×2 (10:01→21:25)
[2022-09-01] MEDS: MELATONIN 5 MG TABLETS PO SCH (21:25)
[2022-09-01] MEDS: THIAMINE HCL 100 MG TABLET (FP) PO SCH (21:25)
[2022-09-02] MEDS: TAMSULOSIN HCL 0.4 MG CAP PO SCH (07:16)
[2022-09-02] MEDS: PHENAZOPYRIDINE HCL 100 MG TABLET (FP) PO SCH (07:16)
[2022-09-02] MEDS: levETIRAcetam XR 750 MG TAB PO SCH ×2 (09:57→21:26)
[2022-09-02] MEDS: PRENATAL VITAMINS W/ FOLIC ACID TABLET (FP) PO SCH (09:57)
[2022-09-02] MEDS: THIAMINE HCL 100 MG TABLET (FP) PO SCH (21:26)
[2022-09-02] MEDS: MELATONIN 5 MG TABLETS PO SCH (21:26)
[2022-09-03] MEDS: TAMSULOSIN HCL 0.4 MG CAP PO SCH (07:04)
[2022-09-03] MEDS: levETIRAcetam XR 750 MG TAB PO SCH ×2 (09:55→21:22)
[2022-09-03] MEDS: PRENATAL VITAMINS W/ FOLIC ACID TABLET (FP) PO SCH (09:56)
[2022-09-03] MEDS: MELATONIN 5 MG TABLETS PO SCH (21:22)
[2022-09-03] MEDS: THIAMINE HCL 100 MG TABLET (FP) PO SCH (21:22)
[2022-09-03] MEDS: hydrOXYzine PAMOATE 25 MG CAPSULE (FP) PO PRN (21:23)
[2022-09-04] MEDS: TAMSULOSIN HCL 0.4 MG CAP PO SCH (07:19)
[2022-09-04] MEDS: PRENATAL VITAMINS W/ FOLIC ACID TABLET (FP) PO SCH (09:45)
[2022-09-04] MEDS: levETIRAcetam XR 750 MG TAB PO SCH ×2 (09:46→21:09)
[2022-09-04] MEDS: THIAMINE HCL 100 MG TABLET (FP) PO SCH (21:09)
[2022-09-04] MEDS: hydrOXYzine PAMOATE 25 MG CAPSULE (FP) PO PRN (21:09)
[2022-09-04] MEDS: MELATONIN 5 MG TABLETS PO SCH (21:09)
[2022-09-05] MEDS: TAMSULOSIN HCL 0.4 MG CAP PO SCH (08:33)
[2022-09-05] MEDS: PRENATAL VITAMINS W/ FOLIC ACID TABLET (FP) PO SCH (09:49)
[2022-09-05] MEDS: levETIRAcetam XR 750 MG TAB PO SCH ×2 (09:50→21:40)
[2022-09-05] MEDS: hydrOXYzine PAMOATE 25 MG CAPSULE (FP) PO PRN (21:39)
[2022-09-05] MEDS: MELATONIN 5 MG TABLETS PO SCH (21:39)
[2022-09-05] MEDS: THIAMINE HCL 100 MG TABLET (FP) PO SCH (21:39)
[2022-09-06] MEDS: TAMSULOSIN HCL 0.4 MG CAP PO SCH (07:06)
[2022-09-06] MEDS: levETIRAcetam XR 750 MG TAB PO SCH ×2 (09:33→21:22)
[2022-09-06] MEDS: PRENATAL VITAMINS W/ FOLIC ACID TABLET (FP) PO SCH (09:33)
[2022-09-06] MEDS: THIAMINE HCL 100 MG TABLET (FP) PO SCH (21:22)
[2022-09-06] MEDS: MELATONIN 5 MG TABLETS PO SCH (21:22)
[2022-09-06] MEDS: hydrOXYzine PAMOATE 25 MG CAPSULE (FP) PO PRN (21:22)
[2022-09-07] MEDS: TAMSULOSIN HCL 0.4 MG CAP PO SCH (07:10)
[2022-09-07] MEDS: PRENATAL VITAMINS W/ FOLIC ACID TABLET (FP) PO SCH (10:12)
[2022-09-07] MEDS: levETIRAcetam XR 750 MG TAB PO SCH ×2 (10:13→21:22)
[2022-09-07] MEDS: MELATONIN 5 MG TABLETS PO SCH (21:21)
[2022-09-07] MEDS: THIAMINE HCL 100 MG TABLET (FP) PO SCH (21:21)
[2022-09-08] MEDS: TAMSULOSIN HCL 0.4 MG CAP PO SCH (07:17)
[2022-09-08] MEDS: PRENATAL VITAMINS W/ FOLIC ACID TABLET (FP) PO SCH (10:01)
[2022-09-08] MEDS: levETIRAcetam XR 750 MG TAB PO SCH ×2 (10:01→21:31)
[2022-09-08 17:29] LABS: EPI CELLS 3 /uL (0-25.1); HYALINE CASTS 2 /uL (0-3.1); URINE APPEARANCE CLEAR; URINE BACTERIA 214 /uL (0-1359); URINE BILIRUBIN NEGATIVE (NEGATIVE); URINE COLOR DK YELLOW; URINE GLUCOSE (UA) NEGATIVE (NEGATIVE); URINE KETONE NEGATIVE (NEGATIVE); URINE LEUK ESTERASE 2+ (NEGATIVE); URINE NITRITE NEGATIVE (NEGATIVE); URINE PROTEIN NEGATIVE (NEGATIVE); URINE UROBILINOGEN 0.2 mg/dL (0.2-1.0); URINE WBC 171 /uL (0-25.8)
[2022-09-08 17:48] LABS: URINE RBC 32.1 /uL (0-23.9)
[2022-09-08] MEDS: MELATONIN 5 MG TABLETS PO SCH (21:31)
[2022-09-08] MEDS: THIAMINE HCL 100 MG TABLET (FP) PO SCH (21:31)
[2022-09-09] MEDS: TAMSULOSIN HCL 0.4 MG CAP PO SCH (07:06)
[2022-09-09] MEDS: PRENATAL VITAMINS W/ FOLIC ACID TABLET (FP) PO SCH (09:49)
[2022-09-09] MEDS ORDERED: levETIRAcetam 500 MG TABLET (FP) PO ONE (10:40)
[2022-09-09] MEDS: levETIRAcetam XR 750 MG TAB PO SCH (11:34)
[2022-09-09] MEDS: levETIRAcetam 250 MG TABLET PO SCH (21:22)
[2022-09-09] MEDS: THIAMINE HCL 100 MG TABLET (FP) PO SCH (21:22)
[2022-09-09] MEDS: MELATONIN 5 MG TABLETS PO SCH (21:22)
[2022-09-10] MEDS: TAMSULOSIN HCL 0.4 MG CAP PO SCH (07:41)
[2022-09-10] MEDS: PRENATAL VITAMINS W/ FOLIC ACID TABLET (FP) PO SCH (09:59)
[2022-09-10] MEDS: levETIRAcetam 250 MG TABLET PO SCH ×2 (09:59→21:29)
[2022-09-10] MEDS: THIAMINE HCL 100 MG TABLET (FP) PO SCH (21:29)
[2022-09-10] MEDS: MELATONIN 5 MG TABLETS PO SCH (21:30)
[2022-09-11] MEDS: TAMSULOSIN HCL 0.4 MG CAP PO SCH (07:16)
[2022-09-11] MEDS: PRENATAL VITAMINS W/ FOLIC ACID TABLET (FP) PO SCH (09:45)
[2022-09-11] MEDS: levETIRAcetam 250 MG TABLET PO SCH ×2 (09:46→21:32)
[2022-09-11] MEDS: THIAMINE HCL 100 MG TABLET (FP) PO SCH (21:32)
[2022-09-11] MEDS: MELATONIN 5 MG TABLETS PO SCH (21:32)
[2022-09-12] MEDS: TAMSULOSIN HCL 0.4 MG CAP PO SCH (07:02)
[2022-09-12] MEDS: PRENATAL VITAMINS W/ FOLIC ACID TABLET (FP) PO SCH (09:58)
[2022-09-12] MEDS: levETIRAcetam 250 MG TABLET PO SCH ×2 (09:59→21:23)
[2022-09-12] MEDS: MELATONIN 5 MG TABLETS PO SCH (21:22)
[2022-09-12] MEDS: THIAMINE HCL 100 MG TABLET (FP) PO SCH (21:23)
[2022-09-13] MEDS: TAMSULOSIN HCL 0.4 MG CAP PO SCH (07:43)
[2022-09-13] MEDS: levETIRAcetam 250 MG TABLET PO SCH ×2 (09:54→21:08)
[2022-09-13] MEDS: PRENATAL VITAMINS W/ FOLIC ACID TABLET (FP) PO SCH (09:54)
[2022-09-13] MEDS: MELATONIN 5 MG TABLETS PO SCH (21:08)
[2022-09-13] MEDS: THIAMINE HCL 100 MG TABLET (FP) PO SCH (21:08)
[2022-09-13] MEDS: hydrOXYzine PAMOATE 25 MG CAPSULE (FP) PO PRN (21:09)
[2022-09-14] MEDS: TAMSULOSIN HCL 0.4 MG CAP PO SCH (07:48)
[2022-09-14] MEDS: PRENATAL VITAMINS W/ FOLIC ACID TABLET (FP) PO SCH (09:49)
[2022-09-14] MEDS: levETIRAcetam 250 MG TABLET PO SCH ×2 (09:49→21:32)
[2022-09-14] MEDS: MELATONIN 5 MG TABLETS PO SCH (21:32)
[2022-09-14] MEDS: THIAMINE HCL 100 MG TABLET (FP) PO SCH (21:32)
[2022-09-15] MEDS: TAMSULOSIN HCL 0.4 MG CAP PO SCH (07:44)
[2022-09-15] MEDS: PRENATAL VITAMINS W/ FOLIC ACID TABLET (FP) PO SCH (09:51)
[2022-09-15] MEDS: levETIRAcetam 250 MG TABLET PO SCH ×2 (09:52→21:21)
[2022-09-15] MEDS: THIAMINE HCL 100 MG TABLET (FP) PO SCH (21:20)
[2022-09-15] MEDS: MELATONIN 5 MG TABLETS PO SCH (21:20)
[2022-09-16] MEDS: TAMSULOSIN HCL 0.4 MG CAP PO SCH (07:57)
[2022-09-16] MEDS: PRENATAL VITAMINS W/ FOLIC ACID TABLET (FP) PO SCH (10:06)
[2022-09-16] MEDS: levETIRAcetam 250 MG TABLET PO SCH ×2 (10:06→21:07)
[2022-09-16] MEDS: MELATONIN 5 MG TABLETS PO SCH (21:07)
[2022-09-16] MEDS: THIAMINE HCL 100 MG TABLET (FP) PO SCH (21:07)
[2022-09-17] MEDS: TAMSULOSIN HCL 0.4 MG CAP PO SCH (07:05)
[2022-09-17] MEDS: levETIRAcetam 250 MG TABLET PO SCH ×2 (09:50→21:07)
[2022-09-17] MEDS: PRENATAL VITAMINS W/ FOLIC ACID TABLET (FP) PO SCH (09:50)
[2022-09-17] MEDS: THIAMINE HCL 100 MG TABLET (FP) PO SCH (21:06)
[2022-09-17] MEDS: MELATONIN 5 MG TABLETS PO SCH (21:06)
[2022-09-18] MEDS: TAMSULOSIN HCL 0.4 MG CAP PO SCH (07:03)
[2022-09-18] MEDS: PRENATAL VITAMINS W/ FOLIC ACID TABLET (FP) PO SCH (09:56)
[2022-09-18] MEDS: levETIRAcetam 250 MG TABLET PO SCH ×2 (09:57→21:13)
[2022-09-18] MEDS: MELATONIN 5 MG TABLETS PO SCH (21:13)
[2022-09-18] MEDS: THIAMINE HCL 100 MG TABLET (FP) PO SCH (21:13)
[2022-09-19] MEDS: TAMSULOSIN HCL 0.4 MG CAP PO SCH (07:07)
[2022-09-19] MEDS: PRENATAL VITAMINS W/ FOLIC ACID TABLET (FP) PO SCH (10:00)
[2022-09-19] MEDS: levETIRAcetam 250 MG TABLET PO SCH ×2 (10:00→21:05)
[2022-09-19] MEDS ORDERED: COLLOIDAL OATMEAL 1 BAR EACH TP PRN (11:54)
[2022-09-19] MEDS: MELATONIN 5 MG TABLETS PO SCH (21:05)
[2022-09-19] MEDS: THIAMINE HCL 100 MG TABLET (FP) PO SCH (21:05)
[2022-09-20 06:28] VITALS: RESP 18
[2022-09-20] MEDS: TAMSULOSIN HCL 0.4 MG CAP PO SCH (07:41)
[2022-09-20] MEDS: PRENATAL VITAMINS W/ FOLIC ACID TABLET (FP) PO SCH (09:57)
[2022-09-20] MEDS: levETIRAcetam 250 MG TABLET PO SCH ×2 (09:57→21:05)
[2022-09-20] MEDS: MELATONIN 5 MG TABLETS PO SCH (21:05)
[2022-09-20] MEDS: THIAMINE HCL 100 MG TABLET (FP) PO SCH (21:06)
[2022-09-21 06:22] VITALS: BP 100/58; PULSE 58; TEMP 97.4
[2022-09-21] MEDS: TAMSULOSIN HCL 0.4 MG CAP PO SCH (07:56)
[2022-09-21] MEDS: PRENATAL VITAMINS W/ FOLIC ACID TABLET (FP) PO SCH (09:32)
[2022-09-21] MEDS: levETIRAcetam 250 MG TABLET PO SCH (09:32)
== END 2022-09-21 10:00 | disposition home or self-care (01) | DRG 772 ==
LOC: YASAS 13:44 → Y5N 13:47
PROVIDERS: ADMIT Allergy & Immunology; ATTEND Psychiatry & Neurology Pain Medicine
PROC: HZ42ZZZ Group Counseling for Substance Abuse Treatment, Cognitive-Behavioral (ICD-10-PCS; principal; 2022-08-25)
DX: F10.20 Alcohol dependence, uncomplicated (principal); F32.A Depression, unspecified; G40.909 Epilepsy, unspecified, not intractable, without status epilepticus; K21.9 Gastro-esophageal reflux disease without esophagitis; L85.3 Xerosis cutis; N40.1 Benign prostatic hyperplasia with lower urinary tract symptoms; R30.0 Dysuria
CPT/HCPCS: 36415; 80053; 81003; 85027; 86780; 86803; 87086; 87389